=== PATIENT | female | born 1930 | race Caucasian/White ===

== ENCOUNTER 2016-12-11 09:04 | Emergency (ER) | payer OTHER ==
[~2016-12-11] VITALS: Ht 152.4 cm; Wt 60.3 kg
--- NOTE | 2016-12-11 09:18 | ED MVC/FALL/TRAUMA COMPLAINT ---
See Addendum History of Present Illness General Chief Complaint: Fall Stated Complaint: TRIP AND FALL, BACK PAIN Source: patient, old records, EMS Exam Limitations: no limitations Vital Signs & Intake/Output Vital Signs & Intake/Output Vital Signs Date Time Temp Pulse Resp B/P Pulse O2 O2 Flow FiO2 Ox Delivery Rate 12/11 1106 96.0 74 20 152/87 94 Room Air 12/11 1008 96.0 70 16 148/66 93 Room Air 12/11 0912 75 18 176/70 94 Room Air Allergies Coded Allergies: NO KNOWN ALLERGIES (11/08/12) Reconcile Medications Acetaminophen 500 MG TABLET 1 TAB PO 4 TIMES/DAY PAIN (Reported) Albuterol Sulfate (Proair Hfa) 90 MCG HFA.AER.AD 1 PUF PO 4 TIMES/DAY BREATHING PROBLEMS (Reported) Budesonide/Formoterol Fumarate (Symbicort 80-4.5 Mcg Inhaler) 80 MCG-4.5 MCG/ ACTUATION HFA.AER.AD 2 PUF INH BID BREATHING PROBLEMS (Reported) Buspirone HCl 10 MG TABLET 0.5 TAB PO BID MENTAL HEALTH (Reported) Divalproex Sodium 250 MG TABLET.DR 1 TAB PO TID UNKNOWN (Reported) Esomeprazole (Nexium) 40 MG CAPSULE.DR 1 CAP PO DAILY GI (Reported) Ferrous Sulfate 325 MG (65 MG IRON) TABLET 1 TAB PO TID SUPPLEMENT (Reported) Ibandronate Sodium (Boniva) 150 MG TABLET 1 TAB PO Q30D BONE (Reported) on the same date with a full glass of water at least 30 minutes before first food or drink of the day; remain in an upright posi Lisinopril 5 MG TABLET 1 TAB PO DAILY HEART (Reported) Lorazepam 0.5 MG TABLET 1 TAB PO TID ANXIETY (Reported) Melatonin 3 MG TABLET 2 TAB PO QPM SLEEP (Reported) Multivitamin (Daily Multiple Vitamin) 1 EACH TABLET 1 TAB PO DAILY SUPPLEMENT (Reported) Sertraline HCl 100 MG TABLET 1 TAB PO DAILY MENTAL HEALTH (Reported) Simvastatin (Simvastatin*) 40 MG TABLET 1 TAB PO DAILY CHOLESTEROL (Reported) Tizanidine HCl 2 MG TABLET 1 TAB PO Q8P PRN SPASMS (Reported) Triage Note: 85 YO FEMALE BIBA FROM [facility]. PT STATE SHE WAS WALKING WITH HER WALKER THIS AM AND HE FEET GAVE OUT ON HER. STATE SHE FELL LANDING ON HER BACK. DENIES HEAD STRIKE. FALL WAS WITNESSED PER EMS AND NO LOC. PT C/P PAIN TO R SIDE OF BACK. PA AT BEDSIDE FOR EVAL Triage Nurses Notes Reviewed? yes Onset: Just prior to arrival Duration: minute(s): (30) Timing: remote history Severity: moderate Severity Numbers: 7 Injuries/Fall Location: back, lower extremity Method of Injury: fall Loss of Consciousness: no loss of consciousness Modifying Factors: Worsens With: movement, palpation. HPI: Patient is an 85-year-old female presenting to the emergency department with chief complaint of right hip and low back pain after slipping and falling prior to arrival. Patient had a witnessed fall while walking to the dining room. She was using a walker when she slipped on the floor and fell backward landing on her right buttock and low back. Patient denies hitting her head. Witnesses report that she did not hit her head. No LOC. Pain is moderate to severe with movement. Denies getting anything for pain prior to arrival. Denies numbness or tingling. Denies any upper extremity pain. No chest pain palpitations or shortness of breath. No abdominal pain. No nausea or vomiting. No diarrhea. Denies any urinary symptoms. Denies any weakness. (CASTILLO DANIEL) Past History Travel History Traveled to [place] past 21 day No Medical History Any Pertinent Medical History? see below for history EENT: MACULAR DEGENERATION Cardiovascular: MITRAL VALVE DISORDER Respiratory: EMPHYSEMA, copd Psychiatric: BIPOLAR, ANXIETY, INSOMNIA, DEPRESSION, ADJUSTMENT DISORDER Blood Disorders: ANEMIA Surgical History Surgical History: non-contributory Psychosocial History What is your primary language Occitan Family History Hx Contributory? No (CASTILLO DANIEL) Review of Systems Review of Systems Constitutional: Reports: no symptoms. Comments Review of systems: See HPI, All other systems negative. Constitutional, no chills fever or weight loss HEENT: No visual changes no sore throat no congestion Cardiovascular: No chest pain ,palpitation , orthopnea or ankle swelling Skin, no jaundice no rashes Respiratory: No dyspnea cough sputum or hemoptysis GI: No nausea no vomiting : No dysuria No hematuria Muscle skeletal: no neck pain, Neurologic: No numbness no confusion, no headache Psych: No stress anxiety or depression,. Heme/endocrine: No bruising no bleeding no polyuria or polydipsia Immunology: No splenectomy or history of AIDS (CASTILLO DANIEL) Physical Exam Physical Exam General Appearance: well developed/nourished, no apparent distress, alert, awake , comfortable Comments: Well-developed well-nourished person in no acute distress HEENT: Normal EENT exam, extraocular motion intact, no nystagmus. Pupils equally round and reactive to light and accommodation. Nose is atraumatic. External auditory canal and Tympanic membranes clear. Pharynx normal. No swelling or edema. Patient wearing glasses. Neck: Supple, no lymphadenopathy, normal range of motion without pain or tenderness, no C-spine tenderness. Full range of motion. Back: Tender palpation along L4, L5 with limited range of motion secondary to pain. Pain to palpation along the lumbar paraspinal muscles as well. Cardiovascular: Regular rate and rhythms no murmurs rubs or gallops, normal JVP Respiratory: Chest nontender. No respiratory distress.breath sounds clear to auscultation bilaterally Abdomen: Soft, nontender nondistended, no appreciable organomegaly. Normal bowel sounds. No ascites, no rebound or guarding. Extremity: No edema, no calf tenderness to palpation, normal and equal pulses. Able to straight leg raise both legs without difficulty or pain. Mild pain to palpation on the posterior aspect of the right hip. No obvious shortening of the lower extremity is. No pain to palpation over bilateral patellas, lower legs. Full range of motion of both feet. Muscular strength is 5 out of 5 in upper and lower extremities while laying on the stretcher. Unable to sit patient up in the stretcher secondary to pain in the back. Neuro: Alert oriented x3, motor sensory normal, cranial nerves II through XII grossly intact. Cerebellar testing is unremarkable. Skin: No appreciable rash on exposed skin, skin is warm and dry. Psych: Mood and affect is normal, memory and judgment is normal. Core Measures ACS in differential dx? No Severe Sepsis Present: No Septic Shock Present: No (CASTILLO DANIEL) Progress Differential Diagnosis: COMPRESSION FRACTURE, MUSCLE STRAIN, HIP FRACTURE, PELVIS FRACTURE, CONTUSION, HERNIATED DISC Plan of Care: Orders Procedure Date/time Status Heart Healthy Diet 12/11 L Active PT Evaluate & Treat 12/11 1043 Active EKG 12/11 1039 Active Vital Signs 12/11 1032 Complete Activity/Ambulation 12/11 1032 Complete Theraputic Activities 15 Min 12/11 UNK Complete Therapeutic Exercise X 15 12/11 UNK Complete PT EVAL LOW COMPLEX 20 MIN 12/11 UNK Complete Diagnostic Imaging: Viewed by Me: Radiology Read, CT Scan. Discussed w/RAD: Radiology Read, CT Scan. Radiology Impression: PATIENT: GENOVEVA ELLINGTON PRESENT AGE: 85 PATIENT ACCOUNT NO: [id number] : 31 LOCATION: [facility] ORDERING PHYSICIAN: CASTILLO KLEIN SERVICE DATE: 12/11/16 EXAM TYPE: RAD - XRY-HIP 2-3 VIEWS, RIGHT EXAMINATION: XR HIP, RIGHT CLINICAL INFORMATION: Pain after fall COMPARISON: None TECHNIQUE: Two views of the right hip. FINDINGS: Bones appear diffusely osteoporotic. The articular cartilage space of each hip is maintained. There is no evidence of acetabular fracture or acute femoral injury. The long right femoral intramedullary nail and its interlocking screw are intact. Also, the femoral neck screws are intact and in satisfactory position. There is an old, healed intertrochanteric femur fracture. Bones have normal alignment at the knee. There is patellofemoral osteoarthrosis with apparent patellofemoral joint space narrowing. No acute fracture, malalignment or joint effusion. IMPRESSION: No acute findings within the visualized right pelvis or right femur., PATIENT: GENOVEVA ELLINGTON PRESENT AGE: 85 PATIENT ACCOUNT NO: [id number] : 31 LOCATION: [facility] ORDERING PHYSICIAN: CASTILLO KLEIN SERVICE DATE: 12/11/16 EXAM TYPE: CAT - CT LUMB SPINE WO IV CONTRAST EXAMINATION: CT LUMBAR SPINE WITHOUT CONTRAST CLINICAL INFORMATION: 85-year-old female with back pain after fall. Evaluate for fracture. COMPARISON: None TECHNIQUE: Helical non-contrast CT images were obtained through the lumbar spine and 1.25 and 2.5 mm axial reconstructions were reviewed along with sagittal and coronal MPRs. DLP: 562 mGy-cm FINDINGS: There is mild levocurvature of the lumbar spine. The bones appear diffusely osteoporotic. Lumbar vertebral alignment is maintained with exception of grade 1 anterolisthesis at L4-L5 and L5-S1. A T12 compression fracture is of uncertain chronicity given the absence of comparison exams. There is approximately 60% central and 40% anterior height loss of the compressed T12 vertebra with mild retropulsion of the posterosuperior vertebral body wall. The posterior elements are intact. There is subtle, horizontal fracture lucency within the L1 vertebral body with an area of minimal retropulsion of its posterior wall, and there is approximately 15-20% central height reduction of the compressed L1 vertebra. The posterior elements are intact. There is mild concavity of the superior and inferior endplates of L2 without evidence of acute L2 vertebral fracture. The L3 vertebral body has a concave superior endplate and small Schmorl's node. There are no acute fractures identified within the anterior or posterior elements of L3. At L3-L4, there is is facet osteoarthritis (right worse on left), vacuum disc degeneration and broad disc bulge. No significant narrowing of the central spinal canal or neural foramina at this level. The L4 vertebral body has concave endplates and demonstrates approximately 60% central height loss. There is no retropulsion of the posterior vertebral wall. No acute fracture lucency is seen at this level. At L4-L5, there is severe facet arthropathy, ligamentum flavum hypertrophy, disc bulge, and 0.4 cm of grade 1 anterolisthesis of L4 on L5. At L4-L5, there is mild central canal stenosis but no significant neural foraminal stenosis. There is mild concavity of the L5 vertebral endplates. No acute fractures are seen within L5. At L5-S1, there is severe facet osteoarthritis, degenerative loss of disc space, vacuum disc phenomenon, disc bulge, ligamentum flavum hypertrophy and 0.4 cm of grade 1 anterolisthesis of L5 on S1. There is multifactorial central canal stenosis and bilateral neural foraminal stenosis at this level. Moderate osteoarthrosis of sacroiliac joints. No evidence of sacral fracture. Diverticulosis of sigmoid colon. No pelvic free fluid. Atherosclerotic calcification of the aorta and branch vessels without aortic aneurysm. No retroperitoneal soft tissue hematoma or lymphadenopathy. IMPRESSION: 1. T12 compression fracture with 60% central height loss, 40% anterior height loss, and mild retropulsion of the posterior vertebral body wall. This fracture is of uncertain chronicity. MR imaging may be obtained if there is need to determine acuity. 2. Acute fracture of the L1 vertebral body with minimal retropulsion of its posterior wall. There is approximately 15-20% central height reduction of the compressed L1 vertebra 3. Compression fracture deformity of L4 which exhibits approximately 60% central height loss. No acute fracture lucency is seen at this level. 4. 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 DICTATED BY: ELDER WHITE MD DATE/TIME DICTATED:12/11/16945 MARKETING DIRECTOR [facility] DATE/ TIME TRANSCRIBED:12/11/16945 CONFIDENTIAL, DO NOT COPY WITHOUT APPROPRIATE AUTHORIZATION. <Electronically signed in Other Vendor System> SIGNED BY: ELDER WHITE MD 12/11/16 1005 Initial ED EKG: SINUS RHYTHM AT 70 BPM, LEFT AXIS DEVIATION, LEFT VENTRICULAR HYPERTROPHY AND BORDERLINE PROLONGED qt Comments: 12/11/2016 9:58:22 AM on arrival patient is alert and oriented, reproducible pain over the right hip and low back. Patient will over CT and x-rays. Patient medicated with IV Tylenol arrival. 12/11/2016 11:09:12 AM patient informed [address] and x-ray results. That showed 3 compression fractures in the lumbar spine. Patient is unable to sit at bedside or up in the stretcher. Physical therapy will come and evaluate the patient. Patient will likely need rehabilitation placement. 12/11/2016 11:59:37 AM nursing spoke with daughter, she is aware of plan for patient to go to rehabilitation. Physical therapy is recommending rehabilitation. 12/11/2016 1:38:57 PM patient will go to outpatient rehabilitation. Currently looking for placement. Patient seen and evaluated by as well. (CASTILLO DANIEL) Departure Departure Time of Disposition: 1339 Disposition: OTHER [facility] (ACUTE) Condition: Stable Clinical Impression Primary Impression: Compression fracture Referrals: PATIENT HAS NO PRIMARY CARE DR Departure Forms: Customer Survey General Discharge Information (CASTILLO DANIEL) PA/FLATBED TRUCK DRIVER Co-Sign Statement Statement: ED Attending supervision documentation- x I saw and evaluated the patient. I have also reviewed all the pertinent lab results and diagnostic results. I agree with the findings and the plan of care as documented in the PA's/FLATBED TRUCK DRIVER's documentation. [] I have reviewed the ED Record and agree with the PA's/FLATBED TRUCK DRIVER's documentation. [] Additions or exceptions (if any) to the PAs/FLATBED TRUCK DRIVER's note and plan are summarized below: [] (ELI RODAS,JADA)
[2016-12-11] MEDS ORDERED: LISINOPRIL5 M1 PO (09:43)
[2016-12-11] MEDS ORDERED: BUSPIRONE HCL10 M1 PO (09:43)
[2016-12-11] MEDS ORDERED: NEXIUM40 M1 PO (09:44)
[2016-12-11] MEDS ORDERED: DAILY MULTIPLE1 EACH PO (09:44)
[2016-12-11] MEDS ORDERED: SIMVASTATIN40 M1 PO (09:45)
[2016-12-11] MEDS ORDERED: ACETAMINOPHEN500 M4 PO (09:47)
[2016-12-11] MEDS ORDERED: PROAIR HFA8.5 GM PO (09:49)
[2016-12-11] MEDS ORDERED: DIVALPROEX SOD250 M2 PO (09:50)
[2016-12-11] MEDS ORDERED: FERROUS SULFAT325 M3 PO (09:51)
[2016-12-11] MEDS ORDERED: SERTRALINE HCL100 MG PO (09:52)
[2016-12-11] MEDS ORDERED: TIZANIDINE HCL2 M1 PO (09:52)
[2016-12-11] MEDS ORDERED: BONIVA150 M1 PO (09:52)
[2016-12-11] MEDS ORDERED: LORAZEPAM0.5 M1 PO (09:53)
[2016-12-11] MEDS ORDERED: MELATONIN3 M4 PO (09:53)
[2016-12-11] MEDS ORDERED: SYMBICORT 80-10.2 GM INH (09:54)
--- NOTE | 2016-12-11 10:05 | CT SCAN REPORT ---
EXAMINATION: CT LUMBAR SPINE WITHOUT CONTRAST CLINICAL INFORMATION: 85-year-old female with back pain after fall. Evaluate for fracture. COMPARISON: None TECHNIQUE: Helical non-contrast CT images were obtained through the lumbar spine and 1.25 and 2.5 mm axial reconstructions were reviewed along with sagittal and coronal MPRs. DLP: 562 mGy-cm FINDINGS: There is mild levocurvature of the lumbar spine. The bones appear diffusely osteoporotic. Lumbar vertebral alignment is maintained with exception of grade 1 anterolisthesis at L4-L5 and L5-S1. A T12 compression fracture is of uncertain chronicity given the absence of comparison exams. There is approximately 60% central and 40% anterior height loss of the compressed T12 vertebra with mild retropulsion of the posterosuperior vertebral body wall. The posterior elements are intact. There is subtle, horizontal fracture lucency within the L1 vertebral body with an area of minimal retropulsion of its posterior wall, and there is approximately 15-20% central height reduction of the compressed L1 vertebra. The posterior elements are intact. There is mild concavity of the superior and inferior endplates of L2 without evidence of acute L2 vertebral fracture. The L3 vertebral body has a concave superior endplate and small Schmorl's node. There are no acute fractures identified within the anterior or posterior elements of L3. At L3-L4, there is is facet osteoarthritis (right worse on left), vacuum disc degeneration and broad disc bulge. No significant narrowing of the central spinal canal or neural foramina at this level. The L4 vertebral body has concave endplates and demonstrates approximately 60% central height loss. There is no retropulsion of the posterior vertebral wall. No acute fracture lucency is seen at this level. At L4-L5, there is severe facet arthropathy, ligamentum flavum hypertrophy, disc bulge, and 0.4 cm of grade 1 anterolisthesis of L4 on L5. At L4-L5, there is mild central canal stenosis but no significant neural foraminal stenosis. There is mild concavity of the L5 vertebral endplates. No acute fractures are seen within L5. At L5-S1, there is severe facet osteoarthritis, degenerative loss of disc space, vacuum disc phenomenon, disc bulge, ligamentum flavum hypertrophy and 0.4 cm of grade 1 anterolisthesis of L5 on S1. There is multifactorial central canal stenosis and bilateral neural foraminal stenosis at this level. Moderate osteoarthrosis of sacroiliac joints. No evidence of sacral fracture. Diverticulosis of sigmoid colon. No pelvic free fluid. Atherosclerotic calcification of the aorta and branch vessels without aortic aneurysm. No retroperitoneal soft tissue hematoma or lymphadenopathy. IMPRESSION: 1. T12 compression fracture with 60% central height loss, 40% anterior height loss, and mild retropulsion of the posterior vertebral body wall. This fracture is of uncertain chronicity. MR imaging may be obtained if there is need to determine acuity. 2. Acute fracture of the L1 vertebral body with minimal retropulsion of its posterior wall. There is approximately 15-20% central height reduction of the compressed L1 vertebra 3. Compression fracture deformity of L4 which exhibits approximately 60% central height loss. No acute fracture lucency is seen at this level. 4. 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
--- NOTE | 2016-12-11 10:20 | RADIOLOGY REPORT ---
EXAMINATION: XR HIP, RIGHT CLINICAL INFORMATION: Pain after fall COMPARISON: None TECHNIQUE: Two views of the right hip. FINDINGS: Bones appear diffusely osteoporotic. The articular cartilage space of each hip is maintained. There is no evidence of acetabular fracture or acute femoral injury. The long right femoral intramedullary nail and its interlocking screw are intact. Also, the femoral neck screws are intact and in satisfactory position. There is an old, healed intertrochanteric femur fracture. Bones have normal alignment at the knee. There is patellofemoral osteoarthrosis with apparent patellofemoral joint space narrowing. No acute fracture, malalignment or joint effusion. IMPRESSION: No acute findings within the visualized right pelvis or right femur.
[2016-12-13 12:51] VITALS: BP 174/72
== END 2016-12-13 13:56 | disposition short-term general hospital (02) ==
LOC: ERH 09:04
DX: S32.010A Wedge compression fracture of first lumbar vertebra, initial encounter for closed fracture (principal); S32.040A Wedge compression fracture of fourth lumbar vertebra, initial encounter for closed fracture; S22.080A Wedge compression fracture of T11-T12 vertebra, initial encounter for closed fracture; W01.0XXA Fall on same level from slipping, tripping and stumbling without subsequent striking against object, initial encounter; Y93.01 Activity, walking, marching and hiking; Y92.001 Dining room of unspecified non-institutional (private) residence as the place of occurrence of the external cause
CPT/HCPCS: 73502-RT; 93005; 93010; 97110-GP; 97161-GP; 97530-GP; J0131; J1200